=== PATIENT | female | born 1995 | race Two or more races ===

== ENCOUNTER 2023-01-22 07:02 | Emergency (ER) | payer OTHER ==
[~2023-01-22] VITALS: Ht 157.5 cm; Wt 48.5 kg
[2023-01-22] MEDS ORDERED: PRENATAL MULTI1 EAC3 (07:15)
== END 2023-01-22 10:47 | disposition home or self-care (01) ==
LOC: ER 07:02
DX: O20.9 Hemorrhage in early pregnancy, unspecified (principal); Z3A.09 9 weeks gestation of pregnancy

== ENCOUNTER 2023-06-14 04:24 | Inpatient (IN) | payer OTHER ==
[~2023-06-14] VITALS: Ht 157.5 cm; Wt 59.9 kg
[~2023-06-14 04:24] MED LIST: PRENATAL MULTI1 EAC3
== END 2023-06-18 12:10 | disposition home or self-care (01) | DRG 833 ==
LOC: OBS/DEL 04:24 → LDR 08:10 → OBS/DEL 08:10 → OB/GYN 06-16 09:52
PROVIDERS: ADMIT Obstetrics & Gynecology; ATTEND Obstetrics & Gynecology
PROC: 4A1HXCZ Monitoring of Products of Conception, Cardiac Rate, External Approach (ICD-10-PCS; principal; 2023-06-14)
PROC: BY4FZZZ Ultrasonography of Third Trimester, Single Fetus (ICD-10-PCS; 2023-06-17)
PROC: BU4CZZZ Ultrasonography of Uterus and Ovaries (ICD-10-PCS; 2023-06-17)
DX: O47.03 False labor before 37 completed weeks of gestation, third trimester (principal); O26.843 Uterine size-date discrepancy, third trimester; Z3A.30 30 weeks gestation of pregnancy; Z20.822 Contact with and (suspected) exposure to COVID-19

== ENCOUNTER 2023-06-29 11:32 | Outpatient (CLI) | payer OTHER | END 2023-06-29 12:16 | disposition home or self-care (01) | LOC: NST 11:32 | PROVIDERS: ATTEND Obstetrics & Gynecology | DX: Z34.83 Encounter for supervision of other normal pregnancy, third trimester (principal) ==

== ENCOUNTER 2023-07-15 09:55 | Outpatient (CLI) | payer OTHER | END 2023-07-15 10:43 | disposition home or self-care (01) | LOC: NST 09:55 | PROVIDERS: ATTEND Obstetrics & Gynecology Maternal & Fetal Medicine | DX: Z34.83 Encounter for supervision of other normal pregnancy, third trimester (principal) ==

== ENCOUNTER 2023-07-17 13:43 | Emergency (ER) | payer OTHER ==
[~2023-07-17] VITALS: Ht 157.5 cm; Wt 63.5 kg
== END 2023-07-17 17:31 | disposition home or self-care (01) ==
LOC: ER 13:43
PROVIDERS: Nurse Practitioner Family
DX: O23.43 Unspecified infection of urinary tract in pregnancy, third trimester (principal); N39.0 Urinary tract infection, site not specified; O98.513 Other viral diseases complicating pregnancy, third trimester; J10.1 Influenza due to other identified influenza virus with other respiratory manifestations; B33.8 Other specified viral diseases; Z3A.35 35 weeks gestation of pregnancy; Z20.822 Contact with and (suspected) exposure to COVID-19

== ENCOUNTER → 2023-07-27 10:48 | Outpatient (CLI) | payer OTHER ==
[~2023-07-27 10:48] MED LIST changes: +NIFEDIPINE ER30 M1
== END | disposition still patient (30) ==
LOC: NST 10:48
PROVIDERS: ATTEND Obstetrics & Gynecology Gynecology
DX: Z34.83 Encounter for supervision of other normal pregnancy, third trimester (principal)